=== PATIENT | female | born 1940 | race Caucasian/White ===

== ENCOUNTER 2017-02-06 10:59 | Emergency (ER) | payer OTHER ==
[~2017-02-06] VITALS: Ht 160 cm; Wt 60.0 kg
[2017-02-06 11:00] VITALS: BP 110/54; PULSE 90; RESP 20; TEMP 97.5; O2SAT 96
[2017-02-06 11:09] VITALS: BP 136/63; PULSE 90; O2SAT 97
[2017-02-06] MEDS ORDERED: SODIUM CHLOR 0.9% 1000 ML INJ 1,000 ML IV SCH (11:43)
--- NOTE | 2017-02-06 11:44 | PD ---
HPI Chief Complaint: Cold / Flu Symptoms Time Seen by Provider: 11:44 Travel History International Travel<30 days: No Contact w/Intl Traveler<30days: No Traveled to known affect area: No History of Present Illness HPI 76-year-old female presents to the emergency department for evaluation of lower abdominal pain for 4 days. Patient states that for the past 4 days she's had intermittent sharp and crampy abdominal pain in the lower aspect of her abdomen. States that the pain has been becoming more frequent and worsening. States that the pain is worse in the left lower quadrant. States that this morning when she woke up she felt weak with subjective fever and chills. States she also had some nausea this morning. States that she had a bowel movement today which was normal, before that her last bowel movement was 2 days ago and typically she goes daily. Pain is moderate. Aggravated with palpation. Alleviated with sitting still. She denies any vomiting, diarrhea, bloody stool, chest pain, shortness of breath, cough or cold symptoms, burning with urination, painful urination, hematuria. Prior abdominal surgeries include section 2 and a tummy tuck. States that she does have a history of diverticulosis but has never had diverticulitis. The patient is from [place] and is here visiting until he and the month. No other complaints. PFSH Past Medical History Hx Anticoagulant Therapy: Yes Cancer: Yes (SKIN CA REMOVED NOSE, EYELIDS AND R SHOULDER ) ?: Not Dilation and Curettage (D&C): Yes Tubal Ligation: Yes Past Surgical History Abdominal Surgery: Yes (TUMMY TUCK) Section: Yes (X2) Gynecologic Surgery: Yes (C SECTON X2) Social History Alcohol Use: Yes (OCC) Tobacco Use: No Substance Use: Yes Allergies-Medications (Allergen,Severity, Reaction): Coded Allergies: No Known Allergies (Unverified , 02/06/17) Reported Meds & Prescriptions Reported Meds & Active Scripts Active Flagyl (Metronidazole) 500 Mg Tab 500 Mg PO TID 10 Days Cipro (Ciprofloxacin HCl) 500 Mg Tab 500 Mg PO BID 10 Days Review of Systems Except as stated in HPI: all other systems reviewed are Neg Physical Exam Narrative GENERAL: Well-nourished and well-developed pleasant female patient in no acute distress who is nontoxic appearing. SKIN: Warm and dry. HEAD: Normocephalic and atraumatic. EYES: No injection, drainage, or hyphema noted. PERRLA. EOMI. ENT: No nasal drainage noted. Oropharynx is clear. NECK: Supple and the trachea is midline. CARDIOVASCULAR: Regular rate and rhythm. RESPIRATORY: Breath sounds are equal bilaterally with no accessory muscle use, wheezing, rhonchi, or crackles. GASTROINTESTINAL: Tenderness to palpation of left lower quadrant and mid lower abdomen. Negative Piedra sign. No rebound tenderness or guarding. Abdomen is soft and nondistended. MUSCULOSKELETAL: No obvious deformities, swelling, cyanosis, or ecchymosis is present throughout the upper and lower extremities. Patient has full range of motion without any signs of neurovascular compromise. NEUROLOGICAL: Awake, alert, and oriented. Normal speech and gait. Cranial nerves are grossly intact. Data Data Last Documented VS Vital Signs Date Time Temp Pulse Resp B/P Pulse Ox O2 Delivery O2 Flow Rate FiO2 02/06/17 12:01 82 18 108/58 96 Room Air 02/06/17 11:00 97.5 Orders Complete Blood Count With Diff (02/06/17 11:43) Comprehensive Metabolic Panel (02/06/17 11:43) Lipase (02/06/17 11:43) Prothrombin Time / Inr (Pt) (02/06/17 11:43) Act Partial Throm Time (Ptt) (02/06/17 11:43) Ct Abd/Pel W Iv Contrast(Rout) (02/06/17 11:43) Iv Access Insert/Monitor (02/06/17 11:43) Ecg Monitoring (02/06/17 11:43) Oximetry (02/06/17 11:43) Sodium Chlor 0.9% 1000 Ml Inj (Ns 1000 M (02/06/17 11:43) Sodium Chloride 0.9% Flush (Ns Flush) (02/06/17 11:45) Iodixanol 320 Inj (Rad Ct) (Visipaque 32 (02/06/17 13:10) Us Abdomen Gallbladder (02/06/17 13:45) Ciprofloxacin 400 Mg Premix (Cipro 400 M (02/06/17 14:00) Metronidazole 500 Mg Inj (Flagyl 500 Mg (02/06/17 14:00) Labs Laboratory Tests Test 02/06/17 11:45 White Blood Count 11.7 TH/MM3 Red Blood Count 4.21 MIL/MM3 Hemoglobin 12.7 GM/DL Hematocrit 38.1 % Mean Corpuscular Volume 90.4 FL Mean Corpuscular Hemoglobin 30.2 PG Mean Corpuscular Hemoglobin 33.4 % Concent Red Cell Distribution Width 12.9 % Platelet Count 185 TH/MM3 Mean Platelet Volume 9.2 FL Neutrophils (%) (Auto) 84.4 % Lymphocytes (%) (Auto) 6.3 % Monocytes (%) (Auto) 8.9 % Eosinophils (%) (Auto) 0.1 % Basophils (%) (Auto) 0.3 % Neutrophils # (Auto) 9.9 TH/MM3 Lymphocytes # (Auto) 0.7 TH/MM3 Monocytes # (Auto) 1.0 TH/MM3 Eosinophils # (Auto) 0.0 TH/MM3 Basophils # (Auto) 0.0 TH/MM3 CBC Comment DIFF FINAL Differential Comment Prothrombin Time 10.4 SEC Prothromb Time International 0.9 RATIO Ratio Activated Partial 27.0 SEC Thromboplast Time Sodium Level 137 MEQ/L Potassium Level 3.8 MEQ/L Chloride Level 99 MEQ/L Carbon Dioxide Level 28.8 MEQ/L Anion Gap 9 MEQ/L Blood Urea Nitrogen 20 MG/DL Creatinine 1.59 MG/DL Estimat Glomerular Filtration 32 ML/MIN Rate Random Glucose 98 MG/DL Calcium Level 9.0 MG/DL Total Bilirubin 1.1 MG/DL Aspartate Amino Transf 15 U/L (AST/SGOT) Alanine Aminotransferase 20 U/L (ALT/SGPT) Alkaline Phosphatase 69 U/L Total Protein 7.4 GM/DL Albumin 3.7 GM/DL Lipase 154 U/L MDM Medical Decision Making Medical Screen Exam Complete: Yes Emergency Medical Condition: Yes Differential Diagnosis Diverticulitis versus colitis versus pancreatitis versus gastroenteritis versus other Narrative Course 76-year-old female presents to the emergency department for evaluation of left lower abdominal pain. Patient is afebrile, vital signs are stable. The patient has tenderness to palpation of left lower quadrant. No peritoneal signs. IV access is obtained, labs were drawn and sent. CT of the abdomen and pelvis has been ordered and is pending. CBC shows elevated white blood cell count of 11.7. CMP shows renal insufficiency with a creatinine of 1.59, GFR 32, BUN 20. Coags are unremarkable. CT of the abdomen and pelvis with IV contrast shows diverticulitis without abscess and a markedly abnormal bladder with mixture of gallstones and apparent soft tissue and around the gallbladder. Ultrasound of the gallbladder shows abnormal appearance to gallbladder fundus with several echogenic foci and questionable wall thickening, may represent polyps or potentially stones. The patient does not have any right upper quadrant tenderness or Piedra sign. This is not acute cholecystitis. She does have diverticulitis and will be discharged with Cipro and Flagyl. She is instructed to follow-up with her PCP regarding ultrasound findings. Patient verbalizes understanding and agreement with treatment plan. I discussed the case with my attending physician Dr. King who is aware of the patients history, physical examination findings, and treatment plan. Diagnosis Primary Impression: Diverticulitis Qualified Code: K57.32 - Diverticulitis of large intestine without perforation or abscess without bleeding Referrals: Primary Care Physician Patient Instructions: Diverticulitis (ED), General Instructions Additional Instructions: Please print off reports and labs for the patient to take with her. Take medication as prescribed with food and a full glass of water. Follow-up with your Primary Care Physician. Return to the ED for any acute worsening of symptoms. Med/Other Pt SpecificInfo: Prescription(s) given Scripts Metronidazole (Flagyl)500 Mg [id number] Mg PO TID 10 Days Ref 0 Prov:Andry King MD 02/06/17 Ciprofloxacin (Cipro)500 Mg [id number] Mg PO BID 10 Days Ref 0 Prov:Andry King MD 02/06/17 Disposition: 01 DISCHARGE HOME Condition: Stable Silvia Cihang Feb 06, 2017 11:44
[2017-02-06] MEDS ORDERED: SODIUM CHLORIDE 0.9% FLUSH 5 ML FLUSH IVF PRN (11:45)
[2017-02-06 12:01] VITALS: BP 108/58; PULSE 82; RESP 18; O2SAT 96
[2017-02-06 12:17] LABS: AUTOMATED NEUTROPHIL # 9.9 TH/MM3 (1.8-7.7); BASOPHIL % 0.3 % (0.0-2.0); EOSINOPHIL % 0.1 % (0.0-4.0); HEMATOCRIT 38.1 % (35.0-46.0); HEMO FLAGS DIFF FINAL; LYMPH % 6.3 % (9.0-44.0); LYMPHOCYTE # 0.7 TH/MM3 (1.0-4.8); MEAN CELL VOLUME 90.4 FL (80.0-100.0); MEAN CORPUSCULAR HEMOGLOBIN 30.2 PG (27.0-34.0); MEAN CORPUSCULAR HGB CONC 33.4 % (32.0-36.0); MONO % 8.9 % (0.0-8.0); NEUT % 84.4 % (16.0-70.0); PLATELET COUNT 185 TH/MM3 (150-450); RED BLOOD COUNT 4.21 MIL/MM3 (4.00-5.30); RED CELL DISTRIBUTION WIDTH 12.9 % (11.6-17.2); WHITE BLOOD COUNT 11.7 TH/MM3 (4.0-11.0)
[2017-02-06 12:25] LABS: INTERNATIONAL NORMALIZED RATIO 0.9 RATIO; PROTHROMBIN TIME - PATIENT 10.4 SEC (9.8-11.6)
[2017-02-06 12:34] LABS: ANION GAP 9 MEQ/L (5-15); AST (GOT) 15 U/L (15-37); BICARBONATE 28.8 MEQ/L (21.0-32.0); BLOOD UREA NITROGEN 20 MG/DL (7-18); CHLORIDE 99 MEQ/L (98-107); GLOMERULAR FILTRATION RATE 32 ML/MIN (>89); POTASSIUM 3.8 MEQ/L (3.5-5.1); SODIUM (NA) 137 MEQ/L (136-145)
[2017-02-06 12:38] LABS: ALKALINE PHOSPHATASE 69 U/L (45-117); ALT (GPT) 20 U/L (10-53); TOTAL BILIRUBIN ADULT 1.1 MG/DL (0.2-1.0)
[2017-02-06] MEDS ORDERED: IODIXANOL 320 MG/ML 10 ML VIAL (for Rad CT) IV ONE (13:10)
--- NOTE | 2017-02-06 13:28 | RADRPT ---
EXAM DATE/TIME: 02/06/2017 12:58 [facility] COMPARISON: No previous studies available for comparison. INDICATIONS : Lower abdominal pain for one week. IV CONTRAST: 65 cc Visipaque (iodixanol) IV ORAL CONTRAST: No oral contrast ingested. RADIATION DOSE: 9.96 CTDIvol (mGy) MEDICAL HISTORY : None SURGICAL HISTORY : section. Tubal ligation. Tummy tuck. ENCOUNTER: Initial ACUITY: 1 week PAIN SCALE: 2/10 LOCATION: Bilateral lower quadrant TECHNIQUE: Volumetric scanning of the abdomen and pelvis was performed. Using automated exposure control and ad justment of the mA and/or kV according to patient size, radiation dose was kept as low as reasonably achievable to obtain optimal diagnostic quality images. FINDINGS: Lung bases are clear. Liver, spleen and pancreas are unremarkable. Gallbladder is abnormal with sof t tissue in and around the fundus of the gallbladder. Spleen and pancreas are unremarkable. There is symmetrical renal function. Cecum and appendix appear normal. There are diverticula in the sigmoid colon with diverticulitis present without abscess. Bladder is unremarkable. Abdominal wall is intact. CONCLUSION: 1. Diverticulitis without abscess. 2. Markedly abnormal gallbladder. There is a mixture of gallstones and apparent soft tissue in and around the gallbladder. Car Hudson MD FACR on February 06, 2017 at 13:15 Board Certified Radiologist. This report was verified electronically.
[2017-02-06] MEDS ORDERED: metroNIDAZOLE 500 MG INJ 100 ML IV ONE (14:00)
[2017-02-06] MEDS ORDERED: CIPROFLOXACIN 400 MG PREMIX 200 ML IV ONE (14:00)
--- NOTE | 2017-02-06 14:41 | PD ---
Physical Exam Date Seen by Provider: Feb 06, 2017 Time Seen by Provider: 12:30 Narrative I, Dr. King, have reviewed the advance practice practitioner's documentation and am in agreement, met with the patient face to face, made the diagnosis, and the medical decision making was done by me. *My assessment and Findings: Patient seen and evaluated with PA, please see PA note for further details. Here with left lower quadrant abdominal pain, tender to palpation in the left lower quadrant without guarding or rebound. Laboratory Tests Test 02/06/17 11:45 White Blood Count 11.7 TH/MM3 (4.0-11.0) Neutrophils (%) (Auto) 84.4 % (16.0-70.0) Lymphocytes (%) (Auto) 6.3 % (9.0-44.0) Monocytes (%) (Auto) 8.9 % (0.0-8.0) Neutrophils # (Auto) 9.9 TH/MM3 (1.8-7.7) Lymphocytes # (Auto) 0.7 TH/MM3 (1.0-4.8) Monocytes # (Auto) 1.0 TH/MM3 (0-0.9) Blood Urea Nitrogen 20 MG/DL (7-18) Creatinine 1.59 MG/DL (0.50-1.00) Estimat Glomerular Filtration 32 ML/MIN (>89) Rate Total Bilirubin 1.1 MG/DL (0.2-1.0) Last 24 hours Impressions Gall Bladder Ultrasound 02/06/17 1345 Signed Impressions: Service Date/Time: January 14:03 - CONCLUSION: Abnormal appearance of the gallbladder fundus with several echogenic foci and questionable wall thickening. The echogenic areas may represent polyps or potentially stones although significant shadowing is not seen. Dawit Beaulieu MD Abdomen/Pelvis CT 02/06/17 1143 Signed Impressions: Service Date/Time: January 12:58 - CONCLUSION: 1. Diverticulitis without abscess. 2. Markedly abnormal gallbladder. There is a mixture of gallstones and apparent soft tissue in and around the gallbladder. Car Hudson MD FACR CAT scan shows diverticulitis and an abnormal appearing gallbladder. Ultrasound was done which did not show any signs of acute cholecystitis although the gallbladder does appear abnormal. On exam, patient has had no right upper quadrant tenderness and lab work did not indicate any signs of allergy elevations. At this point, patient will need further follow-up for this abnormality. Patient will be released with antibiotics and symptomatic relief or pain and for diverticulitis and follow-up with primary care physician. The plan was discussed with her and she states understanding. Data Data Last Documented VS Vital Signs Date Time Temp Pulse Resp B/P Pulse Ox O2 Delivery O2 Flow Rate FiO2 02/06/17 12:01 82 18 108/58 96 Room Air 02/06/17 11:00 97.5 Orders Complete Blood Count With Diff (02/06/17 11:43) Comprehensive Metabolic Panel (02/06/17 11:43) Lipase (02/06/17 11:43) Prothrombin Time / Inr (Pt) (02/06/17 11:43) Act Partial Throm Time (Ptt) (02/06/17 11:43) Ct Abd/Pel W Iv Contrast(Rout) (02/06/17 11:43) Iv Access Insert/Monitor (02/06/17 11:43) Ecg Monitoring (02/06/17 11:43) Oximetry (02/06/17 11:43) Sodium Chlor 0.9% 1000 Ml Inj (Ns 1000 M (02/06/17 11:43) Sodium Chloride 0.9% Flush (Ns Flush) (02/06/17 11:45) Iodixanol 320 Inj (Rad Ct) (Visipaque 32 (02/06/17 13:10) Us Abdomen Gallbladder (02/06/17 13:45) Ciprofloxacin 400 Mg Premix (Cipro 400 M (02/06/17 14:00) Metronidazole 500 Mg Inj (Flagyl 500 Mg (02/06/17 14:00) Labs Laboratory Tests Test 02/06/17 11:45 White Blood Count 11.7 TH/MM3 Red Blood Count 4.21 MIL/MM3 Hemoglobin 12.7 GM/DL Hematocrit 38.1 % Mean Corpuscular Volume 90.4 FL Mean Corpuscular Hemoglobin 30.2 PG Mean Corpuscular Hemoglobin 33.4 % Concent Red Cell Distribution Width 12.9 % Platelet Count 185 TH/MM3 Mean Platelet Volume 9.2 FL Neutrophils (%) (Auto) 84.4 % Lymphocytes (%) (Auto) 6.3 % Monocytes (%) (Auto) 8.9 % Eosinophils (%) (Auto) 0.1 % Basophils (%) (Auto) 0.3 % Neutrophils # (Auto) 9.9 TH/MM3 Lymphocytes # (Auto) 0.7 TH/MM3 Monocytes # (Auto) 1.0 TH/MM3 Eosinophils # (Auto) 0.0 TH/MM3 Basophils # (Auto) 0.0 TH/MM3 CBC Comment DIFF FINAL Differential Comment Prothrombin Time 10.4 SEC Prothromb Time International 0.9 RATIO Ratio Activated Partial 27.0 SEC Thromboplast Time Sodium Level 137 MEQ/L Potassium Level 3.8 MEQ/L Chloride Level 99 MEQ/L Carbon Dioxide Level 28.8 MEQ/L Anion Gap 9 MEQ/L Blood Urea Nitrogen 20 MG/DL Creatinine 1.59 MG/DL Estimat Glomerular Filtration 32 ML/MIN Rate Random Glucose 98 MG/DL Calcium Level 9.0 MG/DL Total Bilirubin 1.1 MG/DL Aspartate Amino Transf 15 U/L (AST/SGOT) Alanine Aminotransferase 20 U/L (ALT/SGPT) Alkaline Phosphatase 69 U/L Total Protein 7.4 GM/DL Albumin 3.7 GM/DL Lipase 154 U/L [facility] Medical Record Reviewed: Yes Supervised Visit with LUIS FERNANDO: Yes Diagnosis Primary Impression: Diverticulitis Scripts Metronidazole (Flagyl)500 Mg [id number] Mg PO TID 10 Days Ref 0 Prov:Andry King MD 02/06/17 Ciprofloxacin (Cipro)500 Mg [id number] Mg PO BID 10 Days Ref 0 Prov:Andry King MD 02/06/17 Disposition: 01 DISCHARGE HOME Condition: Stable Andry King MD Feb 06, 2017 14:41
--- NOTE | 2017-02-06 14:55 | RADRPT ---
EXAM DATE/TIME: 02/06/2017 14:03 [facility] COMPARISON: CT ABDOMEN & PELVIS W CONTRAST, February 06, 2017, 12:58. INDICATIONS : Right upper quadrant pain. Abnormal CT scan. MEDICAL HISTORY : Substance use. SURGICAL HISTORY : section. Tubal ligation. Dilation and curettage. Skin cancer removed from nose, eyelids an d right shoulder. Abdominoplasty. ENCOUNTER: Initial ACUITY: 1 week PAIN SCORE: 0/10 LOCATION: Right upper quadrant MEASUREMENTS: LIVER: 12.9 cm length COMMON DUCT: 5 mm RIGHT KIDNEY: 10.2 x 4.3 x 4.6 cm FINDINGS: LIVER: Normal echotexture without focal lesion or ductal dilatation. COMMON DUCT: No intraluminal mass or stone visualized. GALLBLADDER: There are several echogenic foci seen in the gallbladder fundus. Significant shadowing is not seen. T he fundus appears lobulated. On some images, the gallbladder wall appears thickened but not on other images. PANCREAS: The visualized portions are within normal limits. The pancreatic duct is mildly prominent at 2.5 mm. RIGHT KIDNEY: No evidence of hydronephrosis, stone, or mass. CONCLUSION: Abnormal appearance of the gallbladder fundus with several echogenic foci and questionable wall thick ening. The echogenic areas may represent polyps or potentially stones although significant shadowing is not seen. Dawit Beaulieu MD on February 06, 2017 at 14:44 Board Certified Radiologist. This report was verified electronically.
[2017-02-06] MEDS ORDERED: METR-1 PO (15:03)
[2017-02-06] MEDS ORDERED: CIPR-9 PO (15:03)
== END 2017-02-06 16:06 | disposition home or self-care (01) ==
LOC: NEPC 10:59
DX: K57.32 Diverticulitis of large intestine without perforation or abscess without bleeding (principal); N28.9 Disorder of kidney and ureter, unspecified; D72.829 Elevated white blood cell count, unspecified
CPT/HCPCS: 74177; 76705; 80053; 83690; 85025; 85610; 85730; 96374; 96375; 99285; J0744; J7030; Q9967